=== PATIENT | male | born 1955 | race Caucasian/White ===

== ENCOUNTER 2020-06-21 10:21 | Inpatient (IN) | payer OTHER ==
[~2020-06-21] VITALS: Ht 172.7 cm; Wt 90.7 kg
[~2020-06-21 10:21] MED LIST: BAYER CHEWABLE81 MG PO; CORGARD40 MG PO; LIPITOR20 MG PO; METOPROLOL TART50 MG PO; PLAVIX75 MG PO; [UNRECOGNIZED DRUG - OTHER]
[2020-06-21 10:52] LABS: BASOPHILS 0.6 % (0-2); CALC OSMOLALITY 284 mosm/kg (275-300); CALCIUM 9.6 mg/dL (8.5-10.1); CHLORIDE - SERUM 107 mmol/L (98-107); CREATININE - SERUM 1.2 mg/dL (0.6-1.3); EOSINOPHILS 2.9 % (0-7); GLUCOSE 100 mg/dL (74-106); HEMATOCRIT 49.7 % (42.0-54.0); HEMOGLOBIN 16.9 g/dL (13.5-17.5); IMMATURE GRANULOCYTES 0.3 % (0-5); LYMPHOCYTE ABS# 1.93 10x3/uL (1.32-3.57); LYMPHOCYTES 20.8 % (15-50); MCH 31.7 pg (26.0-34.0); MCV 93.2 fL (80.0-100.0); MEAN PLATELET VOLUME 9.4 fL (7.4-10.4); MONOCYTES 8.1 % (2-11); NEUTROPHIL ABS# 6.26 10x3/uL (1.78-5.38); NEUTROPHILS 67.3 % (40-80); POTASSIUM - SERUM 5.1 mmol/L (3.5-5.1); RBC 5.33 10x6/uL (4.20-6.10); RDW 12.8 % (11.5-14.5); SODIUM 142 mmol/L (136-145); UREA NITROGEN 18 mg/dL (7-18); WBC 9.3 10x3/uL (4.8-10.8); eGFR NON AFRICAN AMERICAN 65 mL/min (90-120)
[2020-06-21 11:01] LABS: APTT 32.2 SECONDS (22.8-39.4)
[2020-06-21 11:14] LABS: ALBUMIN 3.9 g/dL (3.4-5.0); ALKALINE PHOSPHATASE 113 U/L (30-120); ALT (SGPT) 26 U/L (10-68); BILIRUBIN - TOTAL 0.31 mg/dL (0.2-1.3); CKMB 1.5 U/L (0.0-3.6); CREATINE KINASE 71 UL (21-232); MAGNESIUM - SERUM 2.2 mg/dL (1.8-2.4); PROTEIN - SERUM 8.3 g/dL (6.4-8.2)
[2020-06-21 11:16] LABS: TROPONIN-I 0.114 ng/mL (0.000-0.060)
[2020-06-21 11:25] LABS: PLATELET COUNT 213 10x3/uL (130-400)
[2020-06-21 12:15] VITALS: BP 102/72
[2020-06-21 12:24] LABS: INR 1.07 (0.85-1.17); PROTIME 12.9 SECONDS (11.6-15.0)
--- NOTE | 2020-06-21 16:17 | NUR ---
ADMITTED TO M2
--- NOTE | 2020-06-21 16:18 | NUR ---
PATIENT ARRIVED TO FLOOR. ALERT AND ORIENTED. ARRIVED VIA WHEELCHAIR.
[2020-06-21 16:52] VITALS: BP 104/78
[2020-06-21 17:21] LABS: CKMB 1.4 U/L (0.0-3.6); CREATINE KINASE 72 UL (21-232)
[2020-06-21 17:22] LABS: TROPONIN-I 0.102 ng/mL (0.000-0.060)
[2020-06-21 20:00] VITALS: BP 113/62
[2020-06-21 23:25] LABS: CKMB 1.3 U/L (0.0-3.6); CREATINE KINASE 60 UL (21-232)
[2020-06-21 23:26] LABS: TROPONIN-I 0.092 ng/mL (0.000-0.060)
[2020-06-21 23:48] VITALS: BP 113/66
--- NOTE | 2020-06-22 01:39 | NUR ---
0-- PT SITTING UP IN BED. STATES THAT HE REPOSITIONED HIMSELF & HIS PAIN IS BETTER. HAD STENTS PLACED X2-3 MONTHS AGO & STATES THAT THE PAIN FEELS THE SAME. HIS IS IN [facility] FOR A SHOULDER INFECTION SO HE HAS BEEN HOME ALONE & WAITED AT COUPLE OF DAYS BEFORE SEEKING TREATMENT FOR CP.
[2020-06-22 04:53] VITALS: BP 120/85
--- NOTE | 2020-06-22 06:20 | NUR ---
SLEPT MOST OF NIGHT. DID C/O AN ANNOYING TYPE OF CHEST PAIN 1-04/04. "JUST IS A NAGGING PAIN" WILL CONTINUE TO MONITOR.
--- NOTE | 2020-06-22 07:00 | NUR ---
RECIEVED BEDSIDE REPORT. NO CURRENT DISTRESS OR PAIN VERBALIZED. RESP EVEN AND UNLABORED. PATIENT RESTING COMFORTABLE.
[2020-06-22 07:43] VITALS: BP 123/84
[2020-06-22 07:47] LABS: CREATINE KINASE 97 UL (21-232)
[2020-06-22 07:53] LABS: TROPONIN-I 0.498 ng/mL (0.000-0.060)
--- NOTE | 2020-06-22 08:10 | NUR ---
RECIEVED CRITICAL LAB ELEVATED TROPONIN LEVEL 0.[address] LEVEL TO [address]. AVALOS.
[2020-06-22 08:23] VITALS: Ht 172.7 cm; Wt 90.7 kg
--- NOTE | 2020-06-22 09:15 | NUR ---
PATIENT AWAKE AND ALERT PACING AROUND ROOM. NO CURRENT COMPLAINTS OF CHEST PAIN, NO VISUALIZED SYMPTOMS. TELE IN PLACE. RESPIRATIONS EVEN AND UNLABORED. LUNG SOUNDS CLEAR TO AUSCILTATION.
--- NOTE | 2020-06-22 10:40 | NUR ---
TELEMETRY REPORT SR 67
[2020-06-22] MEDS ORDERED: PROTONIX40 MG PO (11:32)
[2020-06-22] MEDS ORDERED: ISOSORBIDE MONO30 M1 PO (11:32)
--- NOTE | 2020-06-22 12:07 | NUR ---
I have reviewed this patient and I concur with the Shift Assessment completed by the Licensed Practical Nurse today this shift.
--- NOTE | 2020-06-22 13:07 | NUR ---
PATIENT DISCHARGED HOME VIA HIS OWN VEHICLE. ALL FOLLOW UP APPTS AND NEW MEDS GIVEN. LEFT FACILITY AT 1300
== END 2020-06-22 13:00 | disposition home or self-care (01) | DRG 282 ==
LOC: D.ER 10:21 → D.M2 11:42
PROVIDERS: Student in an Organized Health Care Education/Training Program; ADMIT Family Medicine; ATTEND Family Medicine
DX: I25.110 Atherosclerotic heart disease of native coronary artery with unstable angina pectoris (principal); I21.A1 Myocardial infarction type 2; I10 Essential (primary) hypertension; E78.5 Hyperlipidemia, unspecified; Z87.891 Personal history of nicotine dependence

== ENCOUNTER 2020-08-20 07:19 | Day surgery (SDC) | payer OTHER ==
[~2020-08-20] VITALS: Ht 172.7 cm; Wt 91.0 kg
--- NOTE | ~2020-08-20 | HEMODYNAMI ---
PATIENT:AKIN ANG MEDICAL RECORD: [id number] : 59 LOCATION:[facility] ADMISSION DATE: 08/20/20 Generatedon:111:33 Patient name: AKIN ANG Patient #: [id number] SSN: [id number] : 1955 Date of study: 08/20/2020 Page: Of Hemodynamic Procedure Report Patient Data Patient Demographics Procedure consent was obtained First Name: AKIN Gender: Male Last Name: SAV : 1955 Middle Initial: PARDEEP Age: 65 year(s) Patient #: [id number] Race: SSN: [id number] Additional ID: [id number] Contact details [address]: [address] [place] [address] State: [place] City: [place] Zip code: [address] Past Medical History Allergies: No known allergies Admission Admission Data Admission Date: 08/20/2020 Admission Time: 7:19 Arrival Date: 08/20/2020 Arrival Time: 0:00 Admit Source: Other Height (in.): 67.72 BSA: 2.04 (m2) Height (cm.): 172 BMI: 30.76 (kg/m2) Weight (lbs.): 200.62 Weight (kg.): 91 Lab Results Lab Result Date: 08/20/2020 Lab Result Time: 0:00 Biochemistry Name Units Result Min Max BUN mg/dl 16 --(---*)-- 7 18 Creatinine mg/dl 1 --(--*-)-- 0.6 1.3 eGFR ml/min 79.69273 *-(----)-- 90 120 NONAFRICAN CBC Name Units Result Min Max Hematocrit % 45.4 --(-*--)-- 42 54 Hemoglobin g/dl 15.7 --(--*-)-- 13.5 17.5 Procedure Procedure Types Cath Procedure Diagnostic Procedure LHC [facility] w/Coronaries Sedation Charges Moderate Sedation 10-24 minutes PCI Procedure Coronary Stent Coronary Stent Initial Hemochron ACT Test Procedure Description Procedure Date Procedure Date: 08/20/2020 Procedure Start Time: 11:02 Procedure End Time: 11:28 Procedure Staff Name Function Franklin Schuster MD Performing Physician Latasha Camargo RT Monitor Pardeep Jefferson RT Scrub Blu Oquendo RN Nurse Procedure Data Cath Procedure Fluoroscopy Diagnostic fluoroscopy Total fluoroscopy Time: 4.6 time: 4.6 min min Diagnostic fluoroscopy Total fluoroscopy dose: 733 dose: 733 mGy mGy Contrast Material Contrast Material Type Amount (ml) Isovue 300 120 Entry Location Entry Primary Successful Side Size Upsize Upsize Entry Closure Succes sful Closure Location (Fr) 1 (Fr) 2 (Fr) Remarks Device Remarks Femoral Right 5 Fr 6 Fr Exoseal artery Short Estimated blood loss: 10 ml Diagnostic catheters Device Type Used For End Catheter Placement MULTIPACK JL 4.0 5Fr Procedure catheter MULTIPACK 3DRC 5Fr Procedure catheter MULTIPACK Pigtail 5 Fr Procedure catheter Procedure Complications No complications Procedure Medications Medication Administration Route Dosage 0.9% NaCl I.V. 100 ml/hr Oxygen etCO2 Nasal cannula 3 l/min Heparin Flush Bag added to field 2 bags (1000units/500ml NS) Lidocaine 2% added to field 20 Versed I.V. 1 mg Fentanyl I.V. 50 mcg Versed I.V. 1 mg Fentanyl I.V. 50 mcg Heparin Bolus I.V. 5000 units Hemodynamics Rest BSA: 2.04 (m2) HGB: 15.7 (g/dl) O2 Consumption: Estimated: 238.98 (ml/min) O2 Co nsumption indexed: Estimated:117.15 (ml/min/m) Heart Rate: 71 (bpm) Pressure Samples Time Site Value (mmHg) Purpose Heart Use Rate(bpm) 11:11 LV 78/9,9 Snapshot 70 Gradients Valve Time Site Site Mean SEP/DFP Peak To Heart Use 1 2 (mmHg) (sec/min) Peak Rate (mmHg) (bpm) Aortic 11:11 LV AO 70 Snapshots Pre Cath Intra NCS Post Cath Vital Signs Time Heart Resp SPO2 etCO2 NIBP (mmHg) Rhythm Pain Sedation Rate (ipm) (%) (mmHg) Status Level (bpm) 10:53:58 69 12 40.6 123/82(109) NSR 0 (11) 10(A) , No pain 10:58:08 68 13 99 38.3 110/61(80) NSR 0 (11) 10(A) , No pain 11:02:13 72 14 100 36.8 96/68(79) NSR 0 (11) 10(A) , No pain 11:06:19 68 11 99 0 96/55(70) NSR 0 (11) 9(A) , No pain 11:10:21 69 11 99 45.9 99/65(75) NSR 0 (11) 9(A) , No pain 11:14:23 69 10 100 0 107/69(88) NSR 0 (11) 9(A) , No pain 11:18:29 71 14 100 39.8 100/66(80) NSR 0 (11) 9(A) , No pain 11:22:32 73 12 100 38.3 95/66(71) NSR 0 (11) 10(A) , No pain 11:26:32 70 10 100 38.3 110/73(84) NSR 0 (11) 10(A) , No pain Medications Time Medication Route Dose Verified Delivered Reason Notes Effectiveness by by 10:56:03 0.9% NaCl I.V. 100 Franklin Blu used for ml/hr St Flynn Oquendo RN procedure 10:56:12 Oxygen etCO2 3 Franklin Blu used for Nasal l/min St Flynn Oquendo RN procedure cannula 10:56:21 Heparin Flush added 2 Franklin Franklin used for Bag to bags [facility] procedure (1000units/500ml field MD DOUGLASS NS) 10:56:31 Lidocaine 2% added 20ml Franklin Franklin for local to vial [facility] anesthetic field MD DOUGLASS 11:00:58 Versed I.V. 1 mg Franklin Blu for sedation St Flynn Oquendo RN, MD 11:01:05 Fentanyl I.V. 50 Franklin Blu for sedation mcg St Flynn Oquendo RN, MD 11:08:07 Versed I.V. 1 mg Franklin Blu for sedation St Flynn Oquendo RN, MD 11:08:10 Fentanyl I.V. 50 Franklin Blu for sedation mcg St Flynn Oquendo RN, MD 11:15:01 Heparin Bolus I.V. [address] units [address] Flynn Oquendo RN anticoagulation Procedure Log Time Note 10:38:39 Admit Source: Other 10:39:11 Procedure Status Elective Heart Cath (OP). 10:39:14 Blu Oquendo RN sent for patient. Start room use. 10:39:15 Time tracking: Regular hours (M-F 7:00 - 5:00) 10:39:20 Plan of Care:Hemodynamics will remain stable., Cardiac rhythm will remain stable., Comfort level will be maintained., Respiratory function will remain adequate., Patient/ family verbilizes understanding of procedure., Procedure tolerated without complication., Recovers from procedure without complications.. 10:44:45 Patient received from Pre/Post Procedure Room to CCL 1 Alert and oriented. Tansferred to table in Supine position. 10:44:47 Signed procedure consent form obtained from patient. 10:44:48 Correct patient and procedure confirmed by team. 10:44:48 Warm blankets applied, and jose hugger turned on for patient comfort. 10:51:31 ECG and BP/O2 sat monitors applied to patient. 10:52:52 Vital chart was started 10:52:54 Baseline sample Acquired. 10:52:57 Rhythm: sinus rhythm 10:52:58 Full Disclosure recording started 10:52:59 Pre-op teaching completed and patient verbalized understanding. 10:52:59 Pre-procedure instructions explained to patient. 10:53:01 Family in patients room. 10:53:02 Patient NPO since Midnight. 10:54:00 Patient allergic to No known allergies 10:54:01 Is the patient allergic to Iodine/contrast media? No. 10:54:02 Is patient on blood thinner?Yes 10:54:08 ACC The patient was administered the following blood thiners within the last 24 hours: ACCPlavix 10:54:17 Patient diabetic? No. 10:54:19 Previous problem with sedation/anesthesia? No ? 10:54:21 Snore? Yes 10:54:22 Sleep apnea? No 10:54:23 Deviated septum? No 10:54:24 Opens mouth fully? Yes 10:54:28 Sticks out tongue? Yes 10:54:30 Airway obstruction? No ? 10:54:32 Dentures? No ? 10:54:35 Pre procedure: right dorsailis pedis pulse 1+ Palpable, but thready & weak; easily obliterated 10:54:38 Patient pain scale 0/10 ?. 10:54:46 IV patent on arrival in left forearm with 0.9% NaCl at [facility]. 10:55:36 Patient Weight : 200.62 lbs 10:56:03 0.9% NaCl 100 ml/hr I.V. was administered by Blu Oquendo RN; used for procedure; Verbal order read back and verified. 10:56:12 Oxygen 3 l/min etCO2 Nasal cannula was administered by Blu Oquendo RN; used for procedure; Verbal order read back and verified. 10:56:21 Heparin Flush Bag (1000units/500ml NS) 2 bags added to field was administered by Franklin Schuster MD; used for procedure; Verbal order read back and verified. 10:56:31 Lidocaine 2% 20ml vial added to field was administered by Franklin Schuster MD; for local anesthetic; Verbal order read back and verified. 10:57:15 Lab Result : Hemoglobin 15.7 g/dl 10:57:15 Lab Result : Hematocrit 45.4 % 10:57:15 Lab Result : eGFR NONAFRICAN 79.46638 ml/min 10:57:15 Lab Result : BUN 16 mg/dl 10:57:15 Lab Result : Creatinine 1 mg/dl 10:57:18 Lab results completed and on chart. 10:57:22 Right groin area was prepped with chlora-prep and draped in sterile fashion 10:57:23 Alarms reviewed by R. N. 10:57:24 Sharps counted by scrub and verified by R.N. 10:58:49 Use device set Femoral Dx 10:58:50 ACIST Syringe (95824) opened to sterile field. 10:58:51 ACIST Hand Control (72490) opened to sterile field. 10:58:51 Bag Decanter () opened to sterile field. 10:58:52 ACIST Manifold (85290) opened to sterile field. 10:58:53 Medline Cath Pack ([id number]) opened to sterile field. 10:58:53 Tegaderm 4 x 4 (1626W) opened to sterile field. 10:58:54 DIAGNOSTIC Multipack 5Fr catheter set ([id number]) opened to sterile field. 10:58:55 SHEATH 5FR [place] (RRL692) opened to sterile field. 10:58:56 EMERALD Guide Wire (653-987) opened to sterile field. 11:00:31 --------ALL STOP TIME OUT------ 11:00:32 Final Timeout: patient, procedure, and site verified with staff and physician. All members of the team are in agreement. 11:00:33 Right groin site verified by team. 11:00:36 Fire Safety Assessment: A--An alcohol-based skin anteseptic being used preoperatively., C--Open oxygen or nitrous oxide is being used., D--An ESU, laser, or fiber-optic light is being used. 11:00:38 Physical assessment completed. ASA score P 2 - A patient with mild systemic disease as per Franklin Schuster MD. 11:00:40 2) 60-89 Mildly reduced kidney function, and other findings (as for stage 1) point to kidney disease. 11:00:42 Maximum allowable contrast dose (3.7 X eGFR X 0.75)222 ml. 11:00:56 Sedation plan: IV Moderate Sedation Medication:Versed, Fentanyl 11:00:58 Versed 1 mg I.V. was administered by Blu Oquendo RN; for sedation; Verbal order read back and verified. 11:01:05 Fentanyl 50 mcg I.V. was administered by Blu Oquendo RN; for sedation; Verbal order read back and verified. 11:02:14 Zero performed for pressure channel P1 11:02:18 Procedure started. 11:02:32 Local anesthetic to right femoral artery with Lidocaine 2% by Franklin Schuster MD.INITIAL ACCESS ONLY 11:02:55 Patient Height : 67.72 inches 11:02:59 Arrival Date: 08/20/2020 12:00:00 AM 11:03:23 Zero performed for pressure channel P1 11:04:02 A 5 Fr sheath was inserted into the Right Femoral artery 11:04:39 A MULTIPACK JL 4.0 5Fr catheter was advanced over the wire and used for Procedure. 11:07:24 LCA angiography performed. 11:07:26 Catheter removed. 11:07:32 A MULTIPACK 3DRC 5Fr catheter was advanced over the wire and used for Procedure. 11:08:07 Versed 1 mg I.V. was administered by Blu Oquendo RN; for sedation; Verbal order read back and verified. 11:08:10 Fentanyl 50 mcg I.V. was administered by Blu Oquendo RN; for sedation; Verbal order read back and verified. 11:09:05 RCA angiography performed. 11:09:06 Catheter removed. 11:09:10 A MULTIPACK Pigtail 5 Fr catheter was advanced over the wire and used for Procedure. 11:10:53 LV gram done using MONROY 11:10:57 Injector settings: Ml/sec: 10, Volume: 20, 11:11:26 LV hemodynamics recorded. 11:11:39 EF : 55 % 11:11:46 Catheter removed. 11:11:49 Proceeding to intervention. 11:11:54 ACC Pre-intervention ANGELA Flow is 3. 11:12:00 Pre PCI Site: [place] LAD has 90% stenosis. 11:12:26 GUIDE 6FR JL 4.0 catheter ([id number]) opened to sterile field. 11:12:28 BMW 300cm Straight [place] 2 wire ([id number]) opened to sterile field. 11:12:28 INFLATOR Merit BasixCompak (XO6766) opened to sterile field. 11:12:28 SHEATH 6FR [place] (IWF802) opened to sterile field. 11:13:12 Sheath upsized to a 6 Fr Short. 11:14:59 6 Fr JL 4 guide catheter was inserted over the wire 11:15:01 Heparin Bolus 5000 units I.V. was administered by Blu Oquendo RN; for anticoagulation; Verbal order read back and verified. 11:18:49 Wire advanced across lesion. 11:22:18 Place stent Inflation Number: 1 A MARE RX 3.0 x 12 stent ([id number]) was prepped and advanced across the Mid LAD . The stent was deployed at 14 [place] for 0:25 (min:sec) . 11:22:55 Stent catheter was removed intact over wire. 11:24:24 Wire removed. 11:24:25 Guide catheter removed. 11:24:32 EXOSEAL 6Fr (EX600) opened to sterile field. 11:24:53 Sheath removed intact; hemostasis achieved with Exoseal to the Right Femoral artery. 11:25:01 Contrast amount:Isovue 300 120ml. 11:25:03 Maximum allowable dose exceeded? No. 11:25:10 Procedure ended.(Physican Out) :25:22 Fluoroscopy time 04.60 minutes. 11:25:29 Fluoroscopy dose: 733 mGy 11:25:29 Flurop Dose total: 733 11:25:36 Dose Area Product 90486 mGy/cm. 11:25:47 Sharps counted by scrub and verified by R.N. 11:25:52 Post-procedure physical assessment completed. ASA score P 2 - A patient with mild systemic disease as per Franklin Schuster MD. 11:25:56 Post procedure rhythm: sinus rhythm 11::04 Estimated blood loss: 10 ml 11:26:06 Post procedure instruction explained to patient.Patient verbalizes understanding. 11:26:08 Patient needs reinforcement of post procedure teaching. 11:26:48 Procedure type changed to Cath procedure, Diagnostic procedure, LHC, [facility] w/Coronaries, Sedation Charges, Moderate Sedation 10-24 minutes, PCI procedure, Coronary Stent, Coronary Stent Initial, Hemochron ACT Test 11:27:08 Procedure and supply charges have been captured, reviewed, submitted and are correct. 11:27:12 Procedure Complication : No complications 11:28:02 Vital chart was stopped 11:28:04 [facility] Findings: MVD- PCI performed (see procedure note) 11:28:09 Operative report dictated upon procedure completion. 11:28:10 See physician's report for complete and final results. 11:28:11 Report given to Pre/Post Procedure Room. 11:28:13 Patient transfered to Pre/Post Procedure Room with Bed. 11:28:16 Full Disclosure recording stopped 11:28:16 Procedure ended. 11:28:20 End room use (Document Last) 11:29:22 End room use (Document Last) 11:29:33 ACT drawn and resulted at 245 seconds. (normal therapeutic range 180-240 seconds). 11:30:04 End room use (Document Last) Intervention Summary Intervention Notes Time ActionType Lesion and Equipment Used Action# Pressure Duration Attributes 11:22:18 Place stent Mid LAD MARE RX 3.0 x 1 14 00:25 12 stent ([id number]) Device Usage Item Name Manufacture Quantity Catalog Hospital Part [facility] Lot# / Number Charge Number Stock Stock Serial# Code ACIST Syringe Acist 1 25970 112610 638705 994597 20 (94375) Medical Systems Inc Bag Decanter Microtek 1 022872 03057 511059 5 () Medical Inc. ACIST Hand Acist 1 40437 729502 214146 030109 5 Control Medical (56514) Systems Inc ACIST Manifold Acist 1 82652 102447 461070 018432 5 (67995) Medical Systems Inc Tegaderm 4 x 4 3M 1 1626W 150292 327869 607417 5 (1626W) Medline Cath Medline 1 [id number] 758522 83863 137000 5 Pack ([id number]) DIAGNOSTIC Cardinal 1 PA2936 633571 41795 738105 30 Multipack 5Fr Health catheter set (IF8583) SHEATH 5FR Terumo 1 [id number] 909196 068948 607220 5 [place] (THH886) EMERALD Guide Cardinal 1 502-455 164401 147391 484036 5 Wire (502-455) Health MULTIPACK JL Cardinal 1 915806 5 4.0 5Fr Health catheter MULTIPACK 3DRC Cardinal 1 707167 5 5Fr catheter Health MULTIPACK Cardinal 1 889367 5 Pigtail 5 Fr Health catheter GUIDE 6FR JL Medtronic 1 [id number] 179260 28555 570746 1 4.0 catheter ([id number]) SHEATH 6FR Terumo 1 DXQ574 996055 800955 778089 40 [place] (IPC529) INFLATOR Merit Merit 1 OS5762 223753 489676 693145 [facility] ([id number][facility] BMW 300cm Green 1 [id number] 153545 655975 836928 5 Straight Vascular [place] 2 wire ([id number]) MARE RX 3.0 x Medtronic 1 [id number] 654953 8591617 529017 5 [id number] 12 stent ([id number]) EXOSEAL 6Fr Cardinal 1 EX600 934066 389800 789644 10 (EX600) Health Signature Audit [place] Stage Time Signature Unsigned Intra-Procedure 08/20/2020 Latasha Camargo 11:29:22 AM RT(R) Intra-Procedure 08/20/2020 Blu Oquendo RN 11:30:04 AM Intra-Procedure 08/20/2020 Franklin Schuster MD 11:30:42 AM Flynn DOUGLASS 08/20/2020 11:33:19 AM Intra-Procedure 08/20/2020 Franklin Baptiste 11:33:49 AM Flynn DOUGLASS [facility] [address] [place] [address]
--- NOTE | ~2020-08-20 | OP ---
PATIENT NAME: AKIN ANG MEDICAL RECORD: [id number] :59 LOCATION:D.CAT ADMISSION DATE: SURGEON: HEMANT SALINAS MD DATE OF OPERATION: 08/20/2020 PROCEDURE PERFORMED: Left heart catheterization, selective coronary angiography, and right femoral artery approach. Stenting of the LAD CATHETERS: A 5-Kyrgyz sheath, 5/4 left and right Juliana, 5/4 pig. The procedure was well tolerated. The procedure was finished. FINDINGS: Left ventriculography in 30 degree MONROY view, normal wall motion, normal systolic function. CORONARY ANATOMY: LEFT MAIN: Left main is free of disease. LAD: LAD at the area of the second distally placed stent has end-stent restenosis of approximately 89%. Circumflex totally occluded, fills well via left to left collaterals. Right coronary artery is rudimentary. PLAN: Intervention of the LAD momentarily. A 5-Kyrgyz sheath was changed for a 6-Kyrgyz sheath. The JL4 guiding catheter provided excellent guide catheter support. Stent deployed was a 3.0 x 12 mm Cade drug-eluting stent up to 14 atmospheres for 45 seconds. Final angiography showed excellent resolution of 80% stenosis. No significant residual. ANGELA flow was 3 throughout the procedure. Heparin was used during the case. The patient was previously on Plavix. Sheath closed with ExoSeal device. TRANSINT:[id number] Voice Confirmation ID: [id number] DOCUMENT ID: [id number] HEMANT SALINAS MD CC: [id number] DICTATION DATE: 08/20/20 1129 AIRCRAFT CABIN CLEANER: 08/20/202014 [facility] 08/20/20 [place] [id number]
[~2020-08-20 07:19] MED LIST changes: +ISOSORBIDE MONO30 M1 PO; +PROTONIX40 MG PO
[2020-08-20] MEDS ORDERED: LASIX40 MG PO (08:16)
[2020-08-20] MEDS ORDERED: ISOSORBIDE MONO30 M1 PO (08:17)
[2020-08-20] MEDS ORDERED: K-DUR20 MEQ PO (08:18)
[2020-08-20 08:32] VITALS: BP 135/93; Ht 172.7 cm; Wt 91.0 kg
[2020-08-20 08:51] LABS: BASOPHILS 0.5 % (0-2); HEMATOCRIT 46.4 % (42.0-54.0); HEMOGLOBIN 15.7 g/dL (13.5-17.5); LYMPHOCYTES 13.4 % (15-50); MCH 31.4 pg (26.0-34.0); MCHC 33.8 g/dL (31.0-37.0); MCV 92.8 fL (80.0-100.0); MEAN PLATELET VOLUME 6.8 fL (7.4-10.4); MONOCYTES 11.9 % (2-11); NEUTROPHILS 71.2 % (40-80); PLATELET COUNT 221 10x3/uL (130-400); RDW 13.7 % (11.5-14.5); WBC 8.6 10x3/uL (4.8-10.8)
[2020-08-20 09:06] LABS: ALT (SGPT) 26 U/L (10-68); CALC OSMOLALITY 279 mosm/kg (275-300); CARBON DIOXIDE 30.1 mmol/L (21.0-32.0); CHLORIDE - SERUM 102 mmol/L (98-107); CHOL - HDL RATIO 2.6 ratio (2.3-4.9); CHOLESTEROL, TOTAL 162 mg/dL (0-200); GLUCOSE 104 mg/dL (74-106); HDL CHOLESTEROL 63 mg/dL (32-96); LDL CHOLESTEROL 88 mg/dL (0-100); LDL-HDL RATIO 1.4 ratio (1.5-3.5); POTASSIUM - SERUM 4.3 mmol/L (3.5-5.1); SODIUM 140 mmol/L (136-145); TRIGLYCERIDE 55 mg/dL (30-200); UREA NITROGEN 16 mg/dL (7-18); eGFR NON AFRICAN AMERICAN 80 mL/min (90-120)
--- NOTE | 2020-08-20 11:45 | NUR ---
PT REC'D TO SUPERVISOR OF OPERATIONS RECOVERY ROOM 3 VIA STRETCHER. MONITORS ESTAB. AT BS, HAS BEEN UPDATED BY DR SALINAS. SEE [employer] INSTALLER FLOWSHEETS. ALARMS ON AND C/L IN REACH.
--- NOTE | 2020-08-20 12:00 | NUR ---
R GROIN EXOSEAL SITE SOFT, NO S/S BLEEDING OR HEMATOMA. R LEG/FOOT WARM WITH PALP PULSES AND CAP REFILL WNL. VSS. PT DENIES PAIN. TOLERATING SIPS. ALARMS ON AND C/L IN REACH.
--- NOTE | 2020-08-20 12:30 | NUR ---
R GROIN EXOSEAL SITE SOFT, NO S/S BLEEDING OR HEMATOMA. R LEG/FOOT WARM WITH PALP PULSES AND BRISK CAP REFILL. PT RESTING QUIETLY. VSS. ALARMS ON AND C/L IN REACH.
--- NOTE | 2020-08-20 12:45 | NUR ---
PT RESTING QUIETLY. R GROIN SITE SOFT, NO S/S BLEEDING OR HEMATOMA. PULSES PALP. PT DENIES PAIN OR NEEDS. VSS.
--- NOTE | 2020-08-20 13:15 | NUR ---
R GROIN EXOSEAL SITE SOFT, NO S/S BLEEDING OR HEMATOMA. R LEG/FOOT WARM WITH PALP PULSES. VSS. PT DENIES NEEDS. ALARMS ON AND C/L IN REACH.
--- NOTE | 2020-08-20 14:00 | NUR ---
R GROIN SITE SOFT, NO S/S BLEEDING OR HEMATOMA. PULSES PALP. HOB ELEVATED SLOWLY. SANDWICH TRAY AND SPRITE PROVIDED. ASSISTING PT. VSS. C/L IN REACH.
--- NOTE | 2020-08-20 14:30 | NUR ---
PT TOLERATED DIET. R GROIN SITE SOFT, NO S/S BLEEDING OR HEMATOMA. R LEG/FOOT WARM WITH PALP PULSES AND BRISK CAP REFILL. PT DENIES PAIN OR NEEDS. BEGIN D/C TEACHING WITH PT AND HIS . VSS. C/L IN REACH.
--- NOTE | 2020-08-20 14:45 | NUR ---
ALL DISCHARGE INSTRUCTIONS REVIEWED WITH PT AND HIS INCLUDING RESTRICTIONS, MEDS AND F/U APPT, BOTH VERBALIZE UNDERSTANDING. PT ALLOWED UP TO BR INDEPENDENTLY.
--- NOTE | 2020-08-20 14:56 | NUR ---
R GROIN SITE SOFT, NO S/S BLEEDING OR HEMATOMA. PULSES PALP. PIV D/C'D INTACT. PT ALLOWED UP TO GET DRESSED.
--- NOTE | 2020-08-20 15:08 | NUR ---
PT D/C'D VIA WC TO PRIVATE VEHICLE WITH ALL PAPERWORK AND BELONGINGS.
== END 2020-08-20 15:08 | disposition home or self-care (01) ==
LOC: D.CATH 07:19
PROVIDERS: ATTEND Internal Medicine Interventional Cardiology
DX: R07.9 Chest pain, unspecified (principal); I25.119 Atherosclerotic heart disease of native coronary artery with unspecified angina pectoris; R06.09 Other forms of dyspnea